=== PATIENT | male | born 1945 | race Caucasian/White ===

== ENCOUNTER 2019-10-04 09:57 | Inpatient (IN) | payer MEDICARE ==
[2019-10-03 10:21] LABS: BASOPHILS # (AUTO) 0.1 X10'3 (0-0.2); BASOPHILS % (AUTO) 1.2 % (0-1); EOSINOPHILS # (AUTO) 0.3 X10'3 (0-0.9); EOSINOPHILS % (AUTO) 4.7 % (0-6); HEMATOCRIT 48.3 % (42.0-52.0); LYMPHOCYTES # (AUTO) 2.1 X10'3 (1.1-4.8); LYMPHOCYTES % (AUTO) 28.4 % (21-51); MEAN CORPUSCULAR HEMOGLOBIN 30.1 PG (27.0-31.0); MEAN CORPUSCULAR HGB CONC 33.2 g/dL (33.0-36.5); MEAN CORPUSCULAR VOLUME 90.9 FL (78-98); MEAN PLATELET VOLUME 9.3 FL (7.4-10.4); MONOCYTES # (AUTO) 0.4 X10'3 (0-0.9); MONOCYTES % (AUTO) 5.9 % (2-12); NEUTROPHILS # (AUTO) 4.5 X10'3 (1.8-7.7); NEUTROPHILS % (AUTO) 59.8 % (42-75); PLATELET COUNT 251 X10'3 (140-440); RED BLOOD COUNT 5.31 X10'6 (4.70-6.10); RED CELL DISTRIBUTION WIDTH 13.5 % (11.5-14.5); WHITE BLOOD COUNT 7.5 X10'3 (4.5-11.0)
[2019-10-03 10:27] LABS: PARTIAL THROMBOPLASTIN TIME 27 SECONDS (22-32)
[2019-10-03 10:37] LABS: ALBUMIN 4.3 G/DL (3.4-5.0); ANION GAP 9 (8-16); BLOOD UREA NITROGEN 15 MG/DL (7-18); BUN/CREATININE RATIO 10.3 (5.4-32.0); CALCIUM 9.2 MG/DL (8.5-10.1); CHLORIDE 105 MMOL/L (99-107); CREATININE 1.45 MG/DL (0.60-1.10); GLUCOSE 104 MG/DL (70-104); POTASSIUM 4.2 MMOL/L (3.5-5.1); SODIUM 140 MMOL/L (135-145); TOTAL CARBON DIOXIDE 26.3 MMOL/L (24-32); eGFR 48 ML/MIN
[~2019-10-04] VITALS: Ht 170.2 cm; Wt 99.4 kg
[2019-10-04] VITALS (15 sets, daily range): BP systolic 103–164; BP diastolic 41–117
[2019-10-04] MEDS ORDERED: LORazepam 0.5 MG tablet PO PRN (10:15)
[2019-10-04] MEDS ORDERED: diphenhydrAMINE 25mg capsule PO PRN ×2 (10:15→13:45)
[2019-10-04] MEDS ORDERED: LIDOcaine/PRILOcaine 5gm cream TP ONE (10:20)
[2019-10-04] MEDS ORDERED: LISI40TA4 PO (11:16)
[2019-10-04] MEDS ORDERED: Benadryl PO (11:16)
[2019-10-04] MEDS ORDERED: METO50TA7 PO (11:16)
[2019-10-04] MEDS: normal saline 1,000 ML IV SCH ×2 (11:24→20:15)
[2019-10-04] MEDS ORDERED: fentaNYL/PF 50MCG/1 ML 2ML syringe ONE (11:26)
[2019-10-04] MEDS ORDERED: LIDOcaine 1% (10mg/ml)w/preservative injection 20ml MDV ONE (11:26)
[2019-10-04] MEDS ORDERED: midazolam 2 mg/2 ml injection ONE (11:26)
[2019-10-04] MEDS ORDERED: verapamil 2.5 mg/ml inj IV ONE (11:26)
[2019-10-04] MEDS ORDERED: iohexol 350MG/ML 100ml bottle IV ONE (11:27)
[2019-10-04] MEDS ORDERED: nitroGLYCERIN-Tridil 50MG/D5W 250 ML IV ONE (11:27)
[2019-10-04] MEDS ORDERED: iohexol 350 MG/ML 50ML vial IV ONE ×2 (11:27→12:31)
[2019-10-04] MEDS ORDERED: heparin 1,000unit/ml 10ml vial 10 ML ONE (11:27)
[2019-10-04] MEDS ORDERED: heparin 25,000 UNIT/250ml bag 250 ML IV ONE (12:53)
[2019-10-04] MEDS ORDERED: DIPH25TA62 PO (13:43)
[2019-10-04] MEDS ORDERED: acetaminophen 325mg tablet PO PRN (13:55)
[2019-10-04] MEDS ORDERED: cyclobenzaprine 10mg tablet PO PRN (13:55)
[2019-10-04] MEDS ORDERED: proCHLORperazine 10 MG/2 ml inj IV PRN (13:55)
[2019-10-04] MEDS ORDERED: OXAZEpam 15mg capsule PO PRN (13:55)
[2019-10-04] MEDS ORDERED: heparin 25,000 UNIT/250ml bag 250 ML IV SCH (13:59)
[2019-10-04] MEDS ORDERED: heparin 10,000 units/1 ML INJ IV PRN (14:00)
[2019-10-04] MEDS ORDERED: heparin 10,000 units/1 ML INJ IV ONE (14:00)
[2019-10-04] MEDS ORDERED: potassium Cl 20mEq/100mL bag 100 ML IV PRN (17:15)
[2019-10-04] MEDS ORDERED: potassium Cl 20 mEq SR tablet PO PRN (17:15)
[2019-10-04] MEDS ORDERED: cefazolin/dext.iso 2gm/50ml 50 ML IV ONE (17:15)
[2019-10-04] MEDS ORDERED: MESSAGE TO NURSING PO ONE ×4 (17:15)
[2019-10-04] MEDS ORDERED: MALTODEXTRIN/FRUCTOSE 0.68 KCAL/ML LIQUID 296ML BOTTLE PO ONE (17:15)
[2019-10-04] MEDS ORDERED: gabapentin 400mg capsule PO ONE (17:15)
[2019-10-04] MEDS ORDERED: insulin glargine (Lantus) pen - multi-dose SQ PRN (17:15)
[2019-10-04] MEDS ORDERED: magnesium 4gm in 100ml NS 100 ML IV PRN (17:15)
[2019-10-04] MEDS ORDERED: dextrose 50%-water 50ml dispensing syringe IV PRN (17:15)
[2019-10-04] MEDS ORDERED: magnesium 2GM in 50ml NS 50 ML IV PRN (17:15)
[2019-10-04] MEDS ORDERED: Insulin Reg/NS 100units/100mL 100 ML IV SCH (17:15)
[2019-10-04] MEDS ORDERED: vancomycin/NS 1 GM ADD-VANTAGE 250 ML IV ONE (17:15)
--- NOTE | 2019-10-04 18:00 | NUR ---
Problems reprioritized. Patient report given, questions answered & plan of care reviewed with ESSIE Marte, VSS, pt is in stable condition, pt transferred to #2016 and in no distress at this time.
[2019-10-04] MEDS ORDERED: morphine 2 MG/ML inj. syringe IV PRN (18:20)
--- NOTE | 2019-10-04 18:26 | NUR ---
report given to anthony
[2019-10-04] MEDS: docusate sod 100mg capsule PO SCH (20:54)
[2019-10-04] MEDS: metoprolol tartrate 12.5mg (1/2 tablet) PO SCH (20:55)
[2019-10-04] MEDS: mupirocin 2% nasal ointment 1gm UD NS SCH (20:55)
[2019-10-04 21:11] LABS: ABG BASE EXCESS 0.1 mmol/L (-2.0-3.0); ABG HCO3 24.3 mmol/L (22.0-26.0); ABG OXYGEN SATURATION 96.7 % (95-98); ABG PH (T) 7.423 (7.350-7.450); ABG PO2 (T) 87.9 mmHg (83-108); FCOHb 0.3 % (0.5-1.5); FMetHb 0.2 % (0.3-1.12); FO2Hb 96.2 % (94-100); TOTAL HEMOGLOBIN 14.8 G/dl (14.0-17.9)
--- NOTE | 2019-10-04 22:45 | NUR ---
Femoral sheath removed at 2140. Manual pressure held for 20 min, then femstop applied. Patient tolerated procedure well, no complications.
[2019-10-05] VITALS (24 sets, daily range): BP systolic 95–150; BP diastolic 47–68
[2019-10-05] MEDS ORDERED: morphine 2 MG/ML inj. syringe IV ONE (02:10)
[2019-10-05 03:04] LABS: BASOPHILS # (AUTO) 0.1 X10'3 (0-0.2); BASOPHILS % (AUTO) 1.2 % (0-1); EOSINOPHILS # (AUTO) 0.3 X10'3 (0-0.9); EOSINOPHILS % (AUTO) 3.9 % (0-6); HEMATOCRIT 45.2 % (42.0-52.0); HEMOGLOBIN 14.9 g/dl (14.0-17.9); LYMPHOCYTES # (AUTO) 1.9 X10'3 (1.1-4.8); LYMPHOCYTES % (AUTO) 25.7 % (21-51); MEAN CORPUSCULAR HEMOGLOBIN 29.8 PG (27.0-31.0); MEAN CORPUSCULAR VOLUME 90.3 FL (78-98); MEAN PLATELET VOLUME 9.4 FL (7.4-10.4); MONOCYTES # (AUTO) 0.5 X10'3 (0-0.9); MONOCYTES % (AUTO) 6.9 % (2-12); NEUTROPHILS # (AUTO) 4.6 X10'3 (1.8-7.7); NEUTROPHILS % (AUTO) 62.3 % (42-75); PLATELET COUNT 222 X10'3 (140-440); RED CELL DISTRIBUTION WIDTH 13.7 % (11.5-14.5); WHITE BLOOD COUNT 7.4 X10'3 (4.5-11.0)
[2019-10-05 03:25] LABS: ALANINE AMINOTRANSFERASE 29 U/L (12-78); ALBUMIN 3.4 G/DL (3.4-5.0); ALBUMIN/GLOBULIN RATIO 1.3 (1.1-1.5); ALKALINE PHOSPHATASE 57 IU/L (46-116); ANION GAP 5 (8-16); ASPARTATE AMINO TRANSFERASE 22 U/L (10-37); BILIRUBIN,TOTAL 0.3 MG/DL (0.1-1.0); BLOOD UREA NITROGEN 17 MG/DL (7-18); BUN/CREATININE RATIO 12.5 (5.4-32.0); CALCIUM 8.6 MG/DL (8.5-10.1); CHLORIDE 109 MMOL/L (99-107); CREATININE 1.36 MG/DL (0.60-1.10); GLUCOSE 99 MG/DL (70-104); SODIUM 142 MMOL/L (135-145); TOTAL CARBON DIOXIDE 28.4 MMOL/L (24-32); eGFR 52 ML/MIN
[2019-10-05 04:31] LABS: HEMOGLOBIN A1C 5.5 % (4.5-6.2)
--- NOTE | 2019-10-05 05:44 | NUR ---
femstop removed at 0500. Dressing to right groin C/D/I, no hematoma
[2019-10-05] MEDS ORDERED: LORazepam 2 mg/ml vial IV ONE (06:00)
[2019-10-05] MEDS ORDERED: famotidine 20mg tablet PO ONE (06:00)
[2019-10-05 06:04] LABS: CLARITY,URINE CLEAR (Clear); COLOR,URINE YELLOW (Yellow); GLUCOSE, URINE NEGATIVE (Neg); KETONES,URINE NEGATIVE (Neg); LEUKOCYTE ESTERASE ,URINE NEGATIVE (Neg); NITRITES, URINE NEGATIVE (Neg); OCCULT BLOOD,URINE NEGATIVE (Neg); PH,URINE 5.5 (4.8-8.0); PROTEIN,URINE NEGATIVE (Neg); UROBILINOGEN,URINE 0.2 E.U/dL (0.2-1.0)
[2019-10-05] MEDS: normal saline 1,000 ML IV SCH (06:15)
[2019-10-05] MEDS: mupirocin 2% nasal ointment 1gm UD NS SCH ×2 (06:19→20:24)
[2019-10-05] MEDS ORDERED: SUFENTANIL CITRATE 50 MCG/ML 2ml ampule IV ONE (06:22)
[2019-10-05] MEDS ORDERED: MIDAZolam 1mg/ml 10ml vial ONE (06:22)
[2019-10-05] MEDS ORDERED: nitroGLYCERIN in D5W 50mg/250ml (Tridil) infusion IV ONE (06:28)
[2019-10-05] MEDS ORDERED: niCARDipine in NS 40mg/200ml (0.2mg/ml) IVPB IV ONE (06:28)
[2019-10-05] MEDS ORDERED: isoflurane 100ml inhalation liquid IH ONE (06:28)
[2019-10-05 06:56] LABS: UA COLLECTION TYPE CLN CATCH MIDSTREAM
[2019-10-05] MEDS ORDERED: lisinopril 20mg tablet PO SCH (08:00)
[2019-10-05] MEDS ORDERED: metoprolol succinate 25mg (24-HOUR) SR. Tablet PO SCH (08:00)
[2019-10-05] MEDS: metoprolol tartrate 12.5mg (1/2 tablet) PO SCH (08:00)
[2019-10-05] MEDS: docusate sod 100mg capsule PO SCH (08:00)
[2019-10-05 08:21] LABS: ABG BASE EXCESS -1.5 mmol/L (-2.0-3.0); ABG HCO3 25.5 mmol/L (22.0-26.0); ABG OXYGEN SATURATION 99.5 % (95-98); ABG PCO2 52.3 mmHg (35.0-45.0); ABG PH 7.306 (7.350-7.450); ABG PO2 324.5 mmHg (60.0-100.0); CL (ABG) 107 mmol/L (99-107); FCOHb 0.6 % (0.5-1.5); FMetHb 0.3 % (0.3-1.12); FO2Hb 98.6 % (94-100); GLUCOSE (ABG) 108 mg/dl (70-104); IONIZED CA (ABG) 1.15 mmol/L (1.03-1.32); K (ABG) 3.4 mmol/L (3.3-5.1); NA (ABG) 137 mmol/L (135-145); TOTAL HEMOGLOBIN 13.8 G/dl (14.0-17.9)
[2019-10-05] MEDS ORDERED: ceFAZolin 1000mg inj ONE (08:25)
[2019-10-05] MEDS ORDERED: heparin 10,000 units/1 ML INJ IR ONE (08:43)
[2019-10-05] MEDS ORDERED: papaverine 30 mg/ml 2ml inj. IA ONE (08:44)
[2019-10-05 08:50] LABS: ABG BASE EXCESS -3.4 mmol/L (-2.0-3.0); ABG HCO3 22.5 mmol/L (22.0-26.0); ABG OXYGEN SATURATION 99.3 % (95-98); ABG PCO2 43.9 mmHg (35.0-45.0); ABG PH 7.328 (7.350-7.450); ABG PO2 278.4 mmHg (60.0-100.0); CL (ABG) 104 mmol/L (99-107); FCOHb 0.3 % (0.5-1.5); FMetHb 0.6 % (0.3-1.12); FO2Hb 98.4 % (94-100); GLUCOSE (ABG) 93 mg/dl (70-104); K (ABG) 3.8 mmol/L (3.3-5.1); NA (ABG) 133 mmol/L (135-145); TOTAL HEMOGLOBIN 13.4 G/dl (14.0-17.9)
[2019-10-05] MEDS ORDERED: midazolam 2 mg/2 ml injection IV ONE (09:15)
[2019-10-05] MEDS ORDERED: fentaNYL/PF 50MCG/1 ML 2ML syringe IV PRN (09:15)
[2019-10-05] MEDS ORDERED: MESSAGE TO NURSING PO ONE (10:00)
[2019-10-05] MEDS ORDERED: 0.9 % SODIUM CHLORIDE 10 ML VIAL ONE ×2 (11:04→11:05)
[2019-10-05] MEDS ORDERED: propofol inj 20 ML IV ONE (11:04)
[2019-10-05] MEDS ORDERED: ePHEDrine 50MG/ML INJ. ONE (11:04)
[2019-10-05] MEDS ORDERED: LIDOcaine 2% (20mg/ml) 5ml vial ONE (11:04)
[2019-10-05] MEDS ORDERED: phenylephrine 10mg/ml inj. ONE ×2 (11:05→12:00)
[2019-10-05] MEDS ORDERED: rocuronium 10mg/ml inj IV ONE ×2 (11:05)
--- NOTE | 2019-10-05 11:15 | NUR ---
Received to room 2043, accompanied by MDs and surgical crew. Placed on ventilator, to air sampling and monitoring, arterial line and PA line pressure monitored. Chest tubes to suction at 20 cm. Ball cath to gravity drainage. Dressings are dry and intact. See assessment record. All vasoactive drugs are infusing via central line.
[2019-10-05 11:25] LABS: ABG BASE EXCESS -3.2 mmol/L (-2.0-3.0); ABG HCO3 21.9 mmol/L (22.0-26.0); ABG OXYGEN SATURATION 99.1 % (95-98); ABG PCO2 (T) 38.5 mmHg (35.0-45.0); ABG PO2 (T) 264.2 mmHg (83-108); FCOHb 0.3 % (0.5-1.5); FMetHb 0.4 % (0.3-1.12); FO2Hb 98.4 % (94-100); PATIENT TEMPERATURE 36.2; PEEP 5 cm H2O; RESPIRATORY RATE 16 b/min; TIDAL VOLUME 600 mL; TOTAL HEMOGLOBIN 13.8 G/dl (14.0-17.9)
[2019-10-05 11:28] LABS: BASOPHILS # (AUTO) 0.1 X10'3 (0-0.2); BASOPHILS % (AUTO) 0.5 % (0-1); EOSINOPHILS # (AUTO) 0.1 X10'3 (0-0.9); EOSINOPHILS % (AUTO) 0.6 % (0-6); HEMATOCRIT 39.2 % (42.0-52.0); HEMOGLOBIN 13.2 g/dl (14.0-17.9); LYMPHOCYTES # (AUTO) 0.8 X10'3 (1.1-4.8); LYMPHOCYTES % (AUTO) 6.5 % (21-51); MEAN CORPUSCULAR HEMOGLOBIN 30.3 PG (27.0-31.0); MEAN CORPUSCULAR HGB CONC 33.6 g/dL (33.0-36.5); MEAN CORPUSCULAR VOLUME 90.3 FL (78-98); MEAN PLATELET VOLUME 8.9 FL (7.4-10.4); MONOCYTES # (AUTO) 0.4 X10'3 (0-0.9); MONOCYTES % (AUTO) 2.7 % (2-12); NEUTROPHILS # (AUTO) 11.6 X10'3 (1.8-7.7); NEUTROPHILS % (AUTO) 89.7 % (42-75); PLATELET COUNT 173 X10'3 (140-440); RED BLOOD COUNT 4.34 X10'6 (4.70-6.10); RED CELL DISTRIBUTION WIDTH 13.3 % (11.5-14.5); WHITE BLOOD COUNT 12.9 X10'3 (4.5-11.0)
[2019-10-05 11:55] LABS: ALBUMIN 3.1 G/DL (3.4-5.0); ANION GAP 7 (8-16); BLOOD UREA NITROGEN 14 MG/DL (7-18); CALCIUM 8.4 MG/DL (8.5-10.1); CHLORIDE 109 MMOL/L (99-107); GLUCOSE 130 MG/DL (70-104); MAGNESIUM 3.2 MG/DL (1.5-2.4); POTASSIUM 4.3 MMOL/L (3.5-5.1); SODIUM 142 MMOL/L (135-145); TOTAL CARBON DIOXIDE 25.6 MMOL/L (24-32); eGFR 50 ML/MIN
[2019-10-05 11:59] LABS: PHOSPHORUS 0.8 MG/DL (2.3-4.5)
[2019-10-05] MEDS ORDERED: nitroGLYCERIN-Tridil 50MG/D5W 250 ML IV PRN (11:59)
[2019-10-05] MEDS ORDERED: sodium chloride 0.45% 1,000 ML IV SCH (11:59)
[2019-10-05] MEDS ORDERED: niCARDipine-NS 40mg/200ml IVPB 200 ML IV PRN (11:59)
[2019-10-05] MEDS ORDERED: Insulin Reg/NS 100units/100mL 100 ML IV SCH ×2 (11:59→13:14)
[2019-10-05] MEDS ORDERED: DOPamine 400mg/D5W 250ml 250 ML IV PRN (11:59)
[2019-10-05] MEDS ORDERED: insulin glargine (Lantus) pen - multi-dose SQ PRN (12:00)
[2019-10-05] MEDS ORDERED: magnesium 4gm in 100ml NS 100 ML IV PRN (12:00)
[2019-10-05] MEDS ORDERED: methylPREDNISolone sod. succ. 500mg inj ONE (12:00)
[2019-10-05] MEDS ORDERED: pantoprazole 40 MG vial IV ONE (12:00)
[2019-10-05] MEDS ORDERED: normal saline 250ml IV soln 250 ML IV PRN (12:00)
[2019-10-05] MEDS ORDERED: potassium Cl 20 mEq SR tablet PO PRN (12:00)
[2019-10-05] MEDS ORDERED: heparin 10,000 units/1 ML INJ ONE (12:00)
[2019-10-05] MEDS ORDERED: morphine 4 MG/ML inj SYRINge IV PRN (12:00)
[2019-10-05] MEDS ORDERED: bisacodyl 10mg suppository rectal RC PRN (12:00)
[2019-10-05] MEDS ORDERED: dextrose 50%-water 50ml dispensing syringe IV PRN (12:00)
[2019-10-05] MEDS ORDERED: sodium phosphate inj. 15 MMOL in dextrose 5%-water 245 ML IV PRN (12:00)
[2019-10-05] MEDS ORDERED: mineral oil 133ml enema RC PRN (12:00)
[2019-10-05] MEDS ORDERED: albumin (human) 25% 100 ML IV solution IV ONE (12:00)
[2019-10-05] MEDS ORDERED: papaverine 30 mg/ml 2ml inj. ONE (12:00)
[2019-10-05] MEDS ORDERED: magnesium 2GM in 50ml NS 50 ML IV PRN (12:00)
[2019-10-05] MEDS ORDERED: heparin 1,000 units/ml 10ml inj ONE (12:00)
[2019-10-05] MEDS ORDERED: potassium Cl 2 mEq/ml inj IV ONE (12:00)
[2019-10-05] MEDS ORDERED: metoclopramide 5 mg/ml inj IV PRN (12:00)
[2019-10-05] MEDS ORDERED: ondansetron/PF 4mg/2ml inj IV PRN (12:00)
[2019-10-05] MEDS ORDERED: magnesium sulf 1 GM/2 ML ONE (12:00)
[2019-10-05] MEDS ORDERED: aminocaproic acid 250 MG/1 ML inj. ONE (12:00)
[2019-10-05] MEDS ORDERED: magnesium citrate 296ml oral solution PO PRN (12:00)
[2019-10-05] MEDS ORDERED: LIDOcaine 2% (20 mg/ml) 5ml cardiac syringe ONE (12:00)
[2019-10-05] MEDS ORDERED: Neutra Phos packet PO PRN (12:00)
[2019-10-05] MEDS ORDERED: magnesium hydroxide 30ml (MOM) UD suspension PO PRN (12:00)
[2019-10-05] MEDS ORDERED: acetaminophen 325mg tablet PO PRN ×2 (12:00)
[2019-10-05] MEDS ORDERED: calcium chloride 100 MG/1 ML inj IV ONE (12:00)
[2019-10-05] MEDS ORDERED: sodium bicarbonate (8.4%) 1 mEq/ml syringe ONE (12:00)
[2019-10-05] MEDS ORDERED: sodium phosphate inj. 30 MMOL in dextrose 5%-water 240 ML IV PRN (12:00)
[2019-10-05] MEDS: potassium Cl 20mEq/100mL bag 100 ML IV PRN ×4 (12:27→20:24)
--- NOTE | 2019-10-05 12:34 | NUR ---
Pt s/p cardiac revascularization would benefit from high protein/heart healthy diet eds once stable prior to discharge. Addendum: 10/05/19 at [address] Amended: Links added.
[2019-10-05] MEDS: gabapentin 300mg capsule PO SCH ×2 (12:35→20:25)
[2019-10-05 12:45] LABS: PARTIAL THROMBOPLASTIN TIME 28 SECONDS (22-32)
[2019-10-05] MEDS: morphine 4 MG/ML inj SYRINge IV PRN ×2 (15:27→20:55)
[2019-10-05 15:51] LABS: ABG BASE EXCESS -3.6 mmol/L (-2.0-3.0); ABG HCO3 22.3 mmol/L (22.0-26.0); ABG OXYGEN SATURATION 98.1 % (95-98); ABG PCO2 (T) 42.4 mmHg (35.0-45.0); ABG PH (T) 7.337 (7.350-7.450); ABG PO2 (T) 117.3 mmHg (83-108); FCOHb 0.1 % (0.5-1.5); FMetHb 0.5 % (0.3-1.12); FO2Hb 97.5 % (94-100); PATIENT TEMPERATURE 36.6; PEEP 5 cm H2O
[2019-10-05] MEDS: ceFAZolin 1GM/D5W- ADD-VANTAGE 50 ML IV SCH (15:51)
[2019-10-05] MEDS: albumin (Human) 5% 250ml 250 ML IV PRN ×3 (16:38→17:26)
[2019-10-05 17:59] LABS: BASOPHILS % (AUTO) 0.2 % (0-1); EOSINOPHILS % (AUTO) 0.1 % (0-6); HEMATOCRIT 37.2 % (42.0-52.0); HEMOGLOBIN 12.2 g/dl (14.0-17.9); LYMPHOCYTES # (AUTO) 0.4 X10'3 (1.1-4.8); LYMPHOCYTES % (AUTO) 3.4 % (21-51); MEAN CORPUSCULAR HEMOGLOBIN 29.8 PG (27.0-31.0); MEAN CORPUSCULAR HGB CONC 32.7 g/dL (33.0-36.5); MEAN CORPUSCULAR VOLUME 90.9 FL (78-98); MEAN PLATELET VOLUME 9.2 FL (7.4-10.4); MONOCYTES # (AUTO) 0.3 X10'3 (0-0.9); MONOCYTES % (AUTO) 2.3 % (2-12); NEUTROPHILS # (AUTO) 10.8 X10'3 (1.8-7.7); PLATELET COUNT 141 X10'3 (140-440); RED BLOOD COUNT 4.09 X10'6 (4.70-6.10); RED CELL DISTRIBUTION WIDTH 13.6 % (11.5-14.5); WHITE BLOOD COUNT 11.5 X10'3 (4.5-11.0)
[2019-10-05 18:06] LABS: ALBUMIN 3.8 G/DL (3.4-5.0); ANION GAP 7 (8-16); BLOOD UREA NITROGEN 16 MG/DL (7-18); BUN/CREATININE RATIO 10.5 (5.4-32.0); CALCIUM 7.6 MG/DL (8.5-10.1); CHLORIDE 112 MMOL/L (99-107); CREATININE 1.52 MG/DL (0.60-1.10); GLUCOSE 142 MG/DL (70-104); MAGNESIUM 2.4 MG/DL (1.5-2.4); PHOSPHORUS 3.2 MG/DL (2.3-4.5); SODIUM 144 MMOL/L (135-145); TOTAL CARBON DIOXIDE 25.4 MMOL/L (24-32); eGFR 45 ML/MIN
--- NOTE | 2019-10-05 18:09 | NUR ---
Problems reprioritized. Patient report given, questions answered & plan of care reviewed with Judie FOUNTAIN.
--- NOTE | 2019-10-05 18:20 | NUR ---
Shift Summary: Patient tolerated extubation at 1715 well and alert/oriented; however, blood pressure began to decrease with SBP in the 90s and MAP in the low 60s; CVP and PAD low. Albumin administered per order with little/no help in BP. SVR 583/SVRI 1211. Dr. Valerio called with orders to start Levophed drip while leaving Nitro gtt on in the background; goal to keep MAP around 70. Also, issues with PA line waveform; Dr. Spaulding at bedside post-extubation and recommended a hard flush with saline; some help in waveform noted.
[2019-10-05] MEDS: NORepinephrine 8mg/ 250ml NS 250 ML IV SCH (18:21)
[2019-10-05] MEDS: vancomycin/NS 1 GM ADD-VANTAGE 250 ML IV SCH (20:24)
[2019-10-05] MEDS: sennosides/docusate sodium tablet PO SCH (20:25)
[2019-10-06] VITALS (24 sets, daily range): BP systolic 101–140; BP diastolic 49–75
[2019-10-06] MEDS: ceFAZolin 1GM/D5W- ADD-VANTAGE 50 ML IV SCH ×3 (00:27→16:05)
[2019-10-06] MEDS: HYDROcodone/acetaminophen 10/325mg tab PO PRN ×4 (00:58→22:19)
[2019-10-06 03:29] LABS: BASOPHILS % (AUTO) 0.1 % (0-1); EOSINOPHILS % (AUTO) 0 % (0-6); HEMATOCRIT 38.4 % (42.0-52.0); HEMOGLOBIN 12.5 g/dl (14.0-17.9); LYMPHOCYTES # (AUTO) 0.7 X10'3 (1.1-4.8); LYMPHOCYTES % (AUTO) 3.2 % (21-51); MEAN CORPUSCULAR HEMOGLOBIN 29.6 PG (27.0-31.0); MEAN CORPUSCULAR HGB CONC 32.6 g/dL (33.0-36.5); MEAN CORPUSCULAR VOLUME 90.9 FL (78-98); MEAN PLATELET VOLUME 9.1 FL (7.4-10.4); MONOCYTES # (AUTO) 0.6 X10'3 (0-0.9); MONOCYTES % (AUTO) 2.6 % (2-12); NEUTROPHILS # (AUTO) 21.8 X10'3 (1.8-7.7); NEUTROPHILS % (AUTO) 94.1 % (42-75); PLATELET COUNT 169 X10'3 (140-440); RED BLOOD COUNT 4.23 X10'6 (4.70-6.10); RED CELL DISTRIBUTION WIDTH 13.9 % (11.5-14.5); WHITE BLOOD COUNT 23.1 X10'3 (4.5-11.0)
[2019-10-06 03:42] LABS: PARTIAL THROMBOPLASTIN TIME 28 SECONDS (22-32)
[2019-10-06 03:44] LABS: ALANINE AMINOTRANSFERASE 39 U/L (12-78); ALBUMIN 3.5 G/DL (3.4-5.0); ALBUMIN/GLOBULIN RATIO 1.6 (1.1-1.5); ALKALINE PHOSPHATASE 37 IU/L (46-116); ANION GAP 10 (8-16); ASPARTATE AMINO TRANSFERASE 51 U/L (10-37); BILIRUBIN,TOTAL 0.4 MG/DL (0.1-1.0); BLOOD UREA NITROGEN 16 MG/DL (7-18); BUN/CREATININE RATIO 10.1 (5.4-32.0); CALCIUM 8.1 MG/DL (8.5-10.1); CHLORIDE 109 MMOL/L (99-107); CREATININE 1.59 MG/DL (0.60-1.10); GLUCOSE 148 MG/DL (70-104); MAGNESIUM 2.8 MG/DL (1.5-2.4); PHOSPHORUS 3.4 MG/DL (2.3-4.5); POTASSIUM 4.8 MMOL/L (3.5-5.1); SODIUM 142 MMOL/L (135-145); TOTAL CARBON DIOXIDE 23.5 MMOL/L (24-32); TOTAL PROTEIN 5.7 G/DL (6.4-8.2); eGFR 43 ML/MIN
--- NOTE | 2019-10-06 06:34 | NUR ---
denies pain at this time , report given to Jessica FOUNTAIN
[2019-10-06] MEDS: sennosides/docusate sodium tablet PO SCH ×2 (07:13→20:19)
[2019-10-06] MEDS: atorvastatin 10mg tablet PO SCH (07:14)
[2019-10-06] MEDS: gabapentin 300mg capsule PO SCH ×3 (07:14→20:20)
[2019-10-06] MEDS: mupirocin 2% nasal ointment 1gm UD NS SCH ×2 (07:15→20:19)
[2019-10-06] MEDS: metoprolol tartrate 25mg tablet PO SCH ×2 (07:15→20:19)
[2019-10-06] MEDS: vancomycin/NS 1 GM ADD-VANTAGE 250 ML IV SCH ×2 (08:01→20:19)
[2019-10-06] MEDS: clopidogrel 75mg tablet PO SCH (08:44)
[2019-10-06 08:55] LABS: ISTAT HGB 8.8 g/dl (14.0-18.0); ISTAT IONIZED CALCIUM 1.32 mmol/L (1.03-1.32); ISTAT K 4.4 mmol/L (3.5-5.1)
[2019-10-06 08:55] LABS: ISTAT CREATININE 0.9 mg/dL (0.8-1.3); ISTAT HGB 8.8 g/dl (14.0-18.0); ISTAT IONIZED CALCIUM 1.44 mmol/L (1.03-1.32); ISTAT K 4.6 mmol/L (3.5-5.1); POC BUN/CREATININE RATIO 15.6 (5.4-32.0)
[2019-10-06] MEDS ORDERED: glucagon, human recombinant 1mg kit SUBCUT PRN (09:10)
[2019-10-06] MEDS ORDERED: dextrose ORAL solution 15 GM/59 ML bottle PO PRN ×2 (09:10)
[2019-10-06] MEDS ORDERED: dextrose 50%-water 50ml dispensing syringe IV PRN ×2 (09:10)
--- NOTE | 2019-10-06 11:53 | NUR ---
Both Right A line and left SC PA line and introducer d/cd. patient BP was maintaining in a safe range without levophed; OK to D/C per Dr. Valerio. Patient tolerated well, no abnormal s/s of bleeding. Educated patient on what to watch for, especially in combination with initiation of new plavix therapy. Right wrist dressed with sterile 4x4 and coban and left sub clavian area was dressed with sterile 4x4s and silk tape.
[2019-10-06] MEDS ORDERED: mineral oil/petrolatum ophthal oint EACHEYE SCH (14:00)
[2019-10-06] MEDS: insulin Lispro (HumaLOG) vial - multi-dose SQ SCH ×2 (14:26→18:56)
--- NOTE | 2019-10-06 18:13 | NUR ---
Problems reprioritized. Patient report given, questions answered & plan of care reviewed with Judie FOUNTAIN.
[2019-10-06] MEDS: NORepinephrine 8mg/ 250ml NS 250 ML IV SCH (20:20)
[2019-10-07] VITALS (15 sets, daily range): BP systolic 98–157; BP diastolic 50–85
[2019-10-07] MEDS: ceFAZolin 1GM/D5W- ADD-VANTAGE 50 ML IV SCH (00:23)
[2019-10-07 04:07] LABS: BASOPHILS # (AUTO) 0.1 X10'3 (0-0.2); BASOPHILS % (AUTO) 0.5 % (0-1); EOSINOPHILS # (AUTO) 0.1 X10'3 (0-0.9); EOSINOPHILS % (AUTO) 0.5 % (0-6); HEMATOCRIT 34.4 % (42.0-52.0); HEMOGLOBIN 11.3 g/dl (14.0-17.9); LYMPHOCYTES # (AUTO) 1.7 X10'3 (1.1-4.8); LYMPHOCYTES % (AUTO) 12.2 % (21-51); MEAN CORPUSCULAR HGB CONC 32.8 g/dL (33.0-36.5); MEAN CORPUSCULAR VOLUME 91.5 FL (78-98); MEAN PLATELET VOLUME 9.5 FL (7.4-10.4); MONOCYTES # (AUTO) 0.6 X10'3 (0-0.9); MONOCYTES % (AUTO) 4.4 % (2-12); NEUTROPHILS # (AUTO) 11.5 X10'3 (1.8-7.7); NEUTROPHILS % (AUTO) 82.4 % (42-75); PLATELET COUNT 127 X10'3 (140-440); RED BLOOD COUNT 3.76 X10'6 (4.70-6.10); RED CELL DISTRIBUTION WIDTH 13.9 % (11.5-14.5); WHITE BLOOD COUNT 13.9 X10'3 (4.5-11.0)
[2019-10-07 04:24] LABS: ANION GAP 4 (8-16); BLOOD UREA NITROGEN 22 MG/DL (7-18); CHLORIDE 107 MMOL/L (99-107); CREATININE 1.19 MG/DL (0.60-1.10); GLUCOSE 103 MG/DL (70-104); POTASSIUM 4.6 MMOL/L (3.5-5.1); SODIUM 140 MMOL/L (135-145); TOTAL CARBON DIOXIDE 28.7 MMOL/L (24-32)
[2019-10-07 04:25] LABS: ALBUMIN 3.1 G/DL (3.4-5.0); BUN/CREATININE RATIO 18.5 (5.4-32.0); CALCIUM 8.2 MG/DL (8.5-10.1); MAGNESIUM 2.3 MG/DL (1.5-2.4); PHOSPHORUS 3.1 MG/DL (2.3-4.5); eGFR 60 ML/MIN
[2019-10-07] MEDS: HYDROcodone/acetaminophen 10/325mg tab PO PRN ×2 (04:45→09:53)
--- NOTE | 2019-10-07 06:27 | NUR ---
claimed slept better last night , vitals stable , still in room air , no untoward s/s noted , report to MONTSE FOUNTAIN
[2019-10-07] MEDS: atorvastatin 10mg tablet PO SCH (07:52)
[2019-10-07] MEDS: gabapentin 300mg capsule PO SCH (07:52)
[2019-10-07] MEDS: clopidogrel 75mg tablet PO SCH (07:52)
[2019-10-07] MEDS: pantoprazole 40mg Tablet.DR PO SCH (07:52)
[2019-10-07] MEDS: sennosides/docusate sodium tablet PO SCH ×2 (07:52→20:44)
[2019-10-07] MEDS: metoprolol tartrate 25mg tablet PO SCH ×2 (07:53→20:44)
[2019-10-07] MEDS: mupirocin 2% nasal ointment 1gm UD NS SCH (07:56)
[2019-10-07] MEDS ORDERED: magnesium 4gm in 100ml NS 100 ML IV PRN (09:00)
[2019-10-07] MEDS ORDERED: potassium Cl 20mEq/100mL bag 100 ML IV PRN (09:00)
[2019-10-07] MEDS ORDERED: potassium Cl 20 mEq SR tablet PO PRN (09:00)
[2019-10-07] MEDS ORDERED: magnesium 2GM in 50ml NS 50 ML IV PRN (09:00)
[2019-10-07] MEDS ORDERED: furosemide 40mg/4ml inj IV ONE (09:00)
--- NOTE | 2019-10-07 10:14 | NUR ---
Chest tubes removed by Dr. Valerio and afterwards the mckoy catheter and central line to the right neck were removed by myself. No abnormal s/s of bleeding at this time. Monitoring closely as patient has just begun a new regiment of plavix.
--- NOTE | 2019-10-07 11:30 | NUR ---
Report called to Wendy FOUNTAIN on [facility]E. Patient sent with all belongings and went via w/c to 316
--- NOTE | 2019-10-07 11:32 | NUR ---
Received to room 316 from ICU. Dressing to mid sternum noted with small amount of shadowing to lower area. Pt oriented to room, unit, and plan of care. Received report from Grace. Philippe and christina swanson at bedside. Pt denies complaints at this time.
[2019-10-07] MEDS: insulin Lispro (HumaLOG) vial - multi-dose SQ SCH ×2 (13:19→18:46)
--- NOTE | 2019-10-07 18:24 | NUR ---
Problems reprioritized. Patient report given, questions answered & plan of care reviewed with Yumiko.
[2019-10-07] MEDS: magnesium Cl slow-release 64mg tablet PO SCH (20:44)
[2019-10-07] MEDS: potassium Cl 20 mEq SR tablet PO SCH (20:45)
[2019-10-08 02:00] VITALS: BP 128/67
[2019-10-08 06:00] VITALS: BP 149/66
[2019-10-08 07:12] LABS: BASOPHILS # (AUTO) 0.1 X10'3 (0-0.2); BASOPHILS % (AUTO) 0.6 % (0-1); EOSINOPHILS # (AUTO) 0.3 X10'3 (0-0.9); EOSINOPHILS % (AUTO) 2.5 % (0-6); HEMOGLOBIN 12.6 g/dl (14.0-17.9); LYMPHOCYTES # (AUTO) 1.5 X10'3 (1.1-4.8); LYMPHOCYTES % (AUTO) 12.4 % (21-51); MEAN CORPUSCULAR HEMOGLOBIN 30.3 PG (27.0-31.0); MEAN CORPUSCULAR VOLUME 91.8 FL (78-98); MEAN PLATELET VOLUME 9.5 FL (7.4-10.4); MONOCYTES # (AUTO) 0.8 X10'3 (0-0.9); MONOCYTES % (AUTO) 6.4 % (2-12); NEUTROPHILS # (AUTO) 9.6 X10'3 (1.8-7.7); NEUTROPHILS % (AUTO) 78.1 % (42-75); PLATELET COUNT 146 X10'3 (140-440); RED BLOOD COUNT 4.14 X10'6 (4.70-6.10); RED CELL DISTRIBUTION WIDTH 13.9 % (11.5-14.5); WHITE BLOOD COUNT 12.4 X10'3 (4.5-11.0)
[2019-10-08 07:27] LABS: ALBUMIN 3.2 G/DL (3.4-5.0); ANION GAP 9 (8-16); BLOOD UREA NITROGEN 22 MG/DL (7-18); BUN/CREATININE RATIO 21.8 (5.4-32.0); CALCIUM 8.7 MG/DL (8.5-10.1); CHLORIDE 105 MMOL/L (99-107); CREATININE 1.01 MG/DL (0.60-1.10); GLUCOSE 102 MG/DL (70-104); SODIUM 141 MMOL/L (135-145); TOTAL CARBON DIOXIDE 27.1 MMOL/L (24-32); eGFR 73 ML/MIN
[2019-10-08 07:30] LABS: POTASSIUM 4.7 MMOL/L (3.5-5.1)
--- NOTE | 2019-10-08 07:44 | NUR ---
Patient in room MED 316. I have received report from Yumiko FOUNTAIN and had the opportunity to ask questions and assume patient care.
[2019-10-08] MEDS: metoprolol tartrate 25mg tablet PO SCH ×2 (07:48→19:22)
[2019-10-08] MEDS: magnesium Cl slow-release 64mg tablet PO SCH ×2 (07:49→19:22)
[2019-10-08] MEDS: clopidogrel 75mg tablet PO SCH (07:49)
[2019-10-08] MEDS: pantoprazole 40mg Tablet.DR PO SCH (07:49)
[2019-10-08] MEDS: atorvastatin 10mg tablet PO SCH (07:49)
[2019-10-08] MEDS: potassium Cl 20 mEq SR tablet PO SCH ×2 (07:49→19:23)
[2019-10-08] MEDS: sennosides/docusate sodium tablet PO SCH ×2 (07:50→19:21)
--- NOTE | 2019-10-08 08:05 | NUR ---
Problems reprioritized. Patient report given, questions answered & plan of care reviewed with NICK FOUNTAIN.
[2019-10-08] MEDS ORDERED: metoprolol tartrate 25mg tablet PO ONE (08:25)
[2019-10-08 11:00] VITALS: BP 164/65
[2019-10-08] MEDS ORDERED: benzocaine/menthol oral lozeng 1 EACH BOX MM PRN (11:40)
--- NOTE | 2019-10-08 12:40 | NUR ---
F/u: Pt/ seen by RD for written/verbal high protein/HH diet eds w/ RD contact information provided. Pt is agreeable to chocolate ensure enlive at lunches; notified. Pt reports portions too large to finish at meals but would like ONS drink. Addendum: 10/08/19 at [address] Amended: Links added.
[2019-10-08 15:00] VITALS: BP 153/79
[2019-10-08 18:00] VITALS: BP 182/92
--- NOTE | 2019-10-08 18:00 | NUR ---
Patient in room MED 316. I have received report from NICK FOUNTAIN and had the opportunity to ask questions and assume patient care.
--- NOTE | 2019-10-08 18:11 | NUR ---
Problems reprioritized. Patient report given, questions answered & plan of care reviewed with Yumiko FOUNTAIN.
[2019-10-08] MEDS ORDERED: hydrALAZINE 20mg/ml inj. IV PRN (18:50)
--- NOTE | 2019-10-08 19:00 | NUR ---
CALLED PROVIDER FOR ELEVATED BP OF 182/92; RETOOK AND WAS 172/86; CHIRAG BURGER ORDERED HYDRALIZINE PRN FOR BP >160;' METOPROLOL 50 MG BID, LISINOPRIL 40 MG DAILY. WILL GIVE, REASSESS FOR RESULTS AND CONTINUE TO MONITOR.
[2019-10-08] MEDS: lisinopril 20mg tablet PO SCH (19:22)
[2019-10-08] MEDS ORDERED: lisinopril 10 MG tablet PO SCH (20:00)
[2019-10-08 22:00] VITALS: BP 136/54
[2019-10-09 02:00] VITALS: BP 149/80
[2019-10-09 05:51] LABS: ALBUMIN 3.2 G/DL (3.4-5.0); ANION GAP 7 (8-16); BLOOD UREA NITROGEN 20 MG/DL (7-18); BUN/CREATININE RATIO 20.8 (5.4-32.0); CALCIUM 8.9 MG/DL (8.5-10.1); CHLORIDE 106 MMOL/L (99-107); CREATININE 0.96 MG/DL (0.60-1.10); GLUCOSE 106 MG/DL (70-104); SODIUM 139 MMOL/L (135-145); TOTAL CARBON DIOXIDE 25.9 MMOL/L (24-32); eGFR 77 ML/MIN
[2019-10-09 05:54] LABS: POTASSIUM 4.9 MMOL/L (3.5-5.1)
[2019-10-09 06:00] VITALS: BP 148/82
[2019-10-09 06:46] LABS: BASOPHILS # (AUTO) 0.1 X10'3 (0-0.2); BASOPHILS % (AUTO) 0.5 % (0-1); EOSINOPHILS # (AUTO) 0.4 X10'3 (0-0.9); EOSINOPHILS % (AUTO) 3.5 % (0-6); HEMATOCRIT 38.9 % (42.0-52.0); HEMOGLOBIN 12.9 g/dl (14.0-17.9); LYMPHOCYTES # (AUTO) 1.3 X10'3 (1.1-4.8); LYMPHOCYTES % (AUTO) 13.3 % (21-51); MEAN CORPUSCULAR HEMOGLOBIN 30.2 PG (27.0-31.0); MEAN CORPUSCULAR HGB CONC 33.1 g/dL (33.0-36.5); MEAN CORPUSCULAR VOLUME 91.1 FL (78-98); MEAN PLATELET VOLUME 9.1 FL (7.4-10.4); MONOCYTES # (AUTO) 0.6 X10'3 (0-0.9); MONOCYTES % (AUTO) 6.2 % (2-12); NEUTROPHILS # (AUTO) 7.7 X10'3 (1.8-7.7); NEUTROPHILS % (AUTO) 76.5 % (42-75); PLATELET COUNT 185 X10'3 (140-440); RED BLOOD COUNT 4.27 X10'6 (4.70-6.10); RED CELL DISTRIBUTION WIDTH 13.8 % (11.5-14.5); WHITE BLOOD COUNT 10.1 X10'3 (4.5-11.0)
--- NOTE | 2019-10-09 07:00 | NUR ---
Patient in room MED 316. I have received report from NURIA and had the opportunity to ask questions and assume patient care.
[2019-10-09] MEDS ORDERED: HYDR-4353 PO ×2 (07:20→11:50)
[2019-10-09] MEDS ORDERED: SENN-166 PO (07:20)
[2019-10-09] MEDS ORDERED: CLOP75TA35 PO (07:20)
[2019-10-09 07:41] LABS: ACTIVATED CLOTTING TIME 140 SEC (101-148)
[2019-10-09] MEDS: potassium Cl 20 mEq SR tablet PO SCH (08:00)
[2019-10-09] MEDS ORDERED: PRAV80TA3 PO (08:52)
[2019-10-09] MEDS: sennosides/docusate sodium tablet PO SCH (09:17)
[2019-10-09] MEDS: clopidogrel 75mg tablet PO SCH (09:17)
[2019-10-09] MEDS: lisinopril 20mg tablet PO SCH (09:19)
[2019-10-09] MEDS: metoprolol tartrate 25mg tablet PO SCH (09:20)
[2019-10-09] MEDS: atorvastatin 10mg tablet PO SCH (09:21)
[2019-10-09] MEDS: pantoprazole 40mg Tablet.DR PO SCH (09:21)
[2019-10-09 10:00] VITALS: BP 153/78
--- NOTE | 2019-10-09 11:00 | NUR ---
REVIEWED ALL DISCHARGE INSTRUCTIONS,PRESCRIPTIONS SENT TO [facility] AND VERIFIED SL DCD,SITE CLEAR ,REVIEWED NEED FOR CARDIAC REHAB,,REVIEWED ALL CARDIAC MOBILITY PRECAUTIONS PT DC'D VIA W/C WITH ALL BELONGINGS
[2019-10-09] MEDS ORDERED: lactose-reduced food (Ensure Enlive) - 237ml bottle PO SCH (12:30)
--- NOTE | 2019-10-10 14:35 | NUR ---
FOLLOW UP HOME ASSESSMENT ON POST CABG HOSPITALIZATION: ARRIVED AT PATIENT HOME AT 1435. WITH KELI FREITAS PHYSICAL THERAPIST. PT PLEASANT AND TALKATIVE WITH PRESENT DURING VISIT. PT. ALERT AND ORIENT X 4. PATIENT VITAL SIGNS: BP 138/80, HR 66, SPO2 97% RA, RR 14. PT MANAGING HIS PAIN WITH MINIMAL USE OF TYLENOL, PRN. BILATERAL POSTERIOR LUNG SOUNDS CLEAR WITH DIMINISHED ROXANA. ANTERIOR LOWER LUNG SOUNDS. CHECKED STERNUM INCISION SITE: CLEAN, DRY AND INTACT WITH NO SWELLING OR WARMTH NOTED, HEALING APPROPRIATELY. LEFT LEG GRAFT SITE, CLEAR, DRY WITH NO SIGNS OR SYMPTOMS OF INFECTION. BILATERAL PEDAL PULSES WNL, LEFT ANKLE WITH +1 PITTING EDEMA, RIGHT ANKLE WNL, ENCOURAGED PATIENT TO ELEVATED FEET AFTER STANDING AND WALKING. REVIEWED INSTRUCTIONS ON USE OF INSPIROMETER AND FLUTTER VALVE FREQUENCY AND THE IMPORTANCE, PT SAID, HE IS COMFORTABLE USING IT. PT VERBALIZED UNDERSTANDING OF LUNG, LEG EXERCISES, ARM USE LIMITATIONS AND ALL OTHER POST OPERATIVE INSTRUCTIONS. ALL OTHER SYSTEMS WNL.
== END 2019-10-09 12:04 | disposition home health service (06) | DRG 233 ==
LOC: SSTAY O 09:57 → CICU 2S 17:59 → ICU 2S 10-05 07:58 → MED 3N 10-07 11:30
PROVIDERS: ADMIT Internal Medicine Cardiovascular Disease; ATTEND Thoracic Surgery (Cardiothoracic Vascular Surgery)
PROC: 4A023N7 Measurement of Cardiac Sampling and Pressure, Left Heart, Percutaneous Approach (ICD-10-PCS; 2019-10-04)
PROC: B2111ZZ Fluoroscopy of Multiple Coronary Arteries using Low Osmolar Contrast (ICD-10-PCS; 2019-10-04)
PROC: B2151ZZ Fluoroscopy of Left Heart using Low Osmolar Contrast (ICD-10-PCS; 2019-10-04)
PROC: B31N1ZZ Fluoroscopy of Other Upper Arteries using Low Osmolar Contrast (ICD-10-PCS; 2019-10-04)
PROC: 021009W Bypass Coronary Artery, One Artery from Aorta with Autologous Venous Tissue, Open Approach (ICD-10-PCS; 2019-10-05)
PROC: 06BQ4ZZ Excision of Left Saphenous Vein, Percutaneous Endoscopic Approach (ICD-10-PCS; 2019-10-05)
PROC: 5A1221Z Performance of Cardiac Output, Continuous (ICD-10-PCS; 2019-10-05)
PROC: B24BZZ4 Ultrasonography of Heart with Aorta, Transesophageal (ICD-10-PCS; 2019-10-05)
PROC: 02HV33Z Insertion of Infusion Device into Superior Vena Cava, Percutaneous Approach (ICD-10-PCS; 2019-10-05)
PROC: B548ZZA Ultrasonography of Superior Vena Cava, Guidance (ICD-10-PCS; 2019-10-05)
PROC: 02HQ32Z Insertion of Monitoring Device into Right Pulmonary Artery, Percutaneous Approach (ICD-10-PCS; 2019-10-05)
PROC: 4A133B3 Monitoring of Arterial Pressure, Pulmonary, Percutaneous Approach (ICD-10-PCS; 2019-10-05)
PROC: 4A1239Z Monitoring of Cardiac Output, Percutaneous Approach (ICD-10-PCS; 2019-10-05)
PROC: 02100Z9 Bypass Coronary Artery, One Artery from Left Internal Mammary, Open Approach (ICD-10-PCS; principal; 2019-10-05 06:28)
DX: I25.119 Atherosclerotic heart disease of native coronary artery with unspecified angina pectoris (principal); N17.0 Acute kidney failure with tubular necrosis; E78.5 Hyperlipidemia, unspecified; I12.9 Hypertensive chronic kidney disease with stage 1 through stage 4 chronic kidney disease, or unspecified chronic kidney disease; M19.90 Unspecified osteoarthritis, unspecified site; E66.9 Obesity, unspecified; N18.9 Chronic kidney disease, unspecified; R09.82 Postnasal drip; Z82.49 Family history of ischemic heart disease and other diseases of the circulatory system; Z88.6 Allergy status to analgesic agent; Z90.49 Acquired absence of other specified parts of digestive tract; Z88.5 Allergy status to narcotic agent; Z68.34 Body mass index [BMI] 34.0-34.9, adult
CPT/HCPCS: 0232T; 76937; 93312; 93458; 36415; 36600; 71045; 80047; 80048; 80053; 81003; 82330; 82435; 82803; 82947; 82948; 83036; 83735; 84100; 84132; 84295; 85018; 85025; 85347; 85384; 85610; 85730; 86885; 86900; 86901; 86920; 87081; 87635; 93005; 93880; 93971; 94002; 94010; 94667; 94668; 94760; 97116; 97161; 97530; 99152; 99153; A4618; A4620; A5120; A6258; A6402; A6449; A7000; A7048; C1713; C1751; C1769; C1894; C9113; G0378; J0360; J0690; J1644; J1815; J2001; J2060; J2150; J2250; J2270; J2370; J2405; J2440; J2704; J2930; J3010; J3370; J3475; J3480; J3490; J7030; J7040; J7050; J7060; J7120; P9047; Q0163; Q9967